=== PATIENT | male | born 1945 | race Caucasian/White ===

== ENCOUNTER 2024-10-10 17:43 | Emergency (ER) | payer OTHER, SELFPAY ==
[2024-10-10 17:43] VITALS: BMI 31.6
[2024-10-10 17:53] VITALS: BP 144/90
[2024-10-10 18:14] LABS: Hematocrit 36.9 % (39.0-52.0); Hemoglobin 12.6 g/dL (13.0-18.0); Mean Corp Hgb Conc. 34.1 g/dL (33.0-37.0); Mean Corpuscular Volume 89.8 fL (80.0-94.0); Nucleated Red Blood Cells % 0 % (-); Platelet Count 146 10^3/uL (130-400); Red Cell Dist. Width 12.2 % (11.5-14.5)
[2024-10-10 18:33] LABS: ALT (SGPT) 17 U/L (0-50); AST (SGOT) 17 U/L (17-59); Albumin 4.2 g/dl (3.5-5.0); Alkaline Phosphatase 84 U/L (38-126); Blood Urea Nitrogen 15 mg/dl (9-20); Calcium 8.4 mg/dl (8.4-10.2); Carbon Dioxide 24 mmol/L (22-30); Chloride 96 mmol/L (98-107); Glucose 292 mg/dl (70-99); Potassium 4.6 mmol/L (3.5-5.1); Sodium 128 mmol/L (135-145); Total Protein 6.8 g/dl (6.3-8.2); eGFR > 60.00
[2024-10-10 20:58] VITALS: BP 137/86
[2024-10-10 21:00] VITALS: BP 138/84
--- NOTE | 2024-10-10 22:52 | ED.GENMED ---
History of Present Illness
General
Chief Complaint: Headache
Source: patient
Time Seen by Provider: 10/10/24 20:49
History of Present Illness
History of Present Illness:
Note:
CHIEF COMPLAINT(S)
Headache.
HISTORY OF PRESENT ILLNESS
The patient is an 79-year-old male with a history of diabetes, coronary artery disease, and hypertension, who presents with a headache that began two days ago. He describes the onset as gradual and notes that the pain is localized primarily to the
bilateral temporal regions. The patient reports associated scalp tenderness on both sides but denies any accompanying rash, fever, neck pain, prior injury, numbness, tingling, or motor weakness. The headache reportedly improves with the use of
Aleve, which the patient took at home. During the examination, the patient indicated that the headache was almost resolved.
PAST MEDICAL AND SURGICAL HISTORY
Diabetes, Coronary artery disease, Hypertension.
PHYSICAL EXAM
General: Alert, no acute distress.
Skin: Warm, dry.
Head: Normocephalic, atraumatic.
Neck: Supple, trachea midline.
Eye, Ears, Nose, Mouth and Throat: Oral mucosa moist; pupils are reactive to light; cranial nerves are intact.
Cardiovascular: Heart is regular without murmurs; normal peripheral perfusion, No edema.
Respiratory: Lungs are clear to auscultation; respirations are non-labored.
Gastrointestinal: Abdomen non-distended.
Back: Normal range of motion; normal alignment.
Musculoskeletal: Normal range of motion, normal strength.
Neurological: Alert and oriented to person, place, time, and situation; no focal neurological deficit observed; no pronator drift.
Psychiatric: Cooperative, appropriate mood & affect.
PROBLEM LIST
Acute: Headache
Chronic: Diabetes, Coronary artery disease, Hypertension
PLAN
The patient was advised to continue monitoring symptoms and to contact his primary care physician if the headache worsens or if new symptoms develop. Given the improvement with Aleve and resolution during evaluation, no immediate further
intervention is necessary.
DIFFERENTIAL DIAGNOSIS
The Differential Diagnosis includes, in no particular order and is not limited to:
1. Tension-type headache
2. Temporal arteritis
3. Migraine
4. Sinusitis
5. Hypertensive headache
6. Cluster headache
7. Medication overuse headache
8. Occipital neuralgia
9. Cervical spondylosis
10. Trigeminal neuralgia
Disposition:
SUMMARY OF ENCOUNTER
The patient, an 79-year-old male with a history of diabetes, coronary artery disease, and hypertension, presented with a headache that began two days ago, primarily localized to the bilateral temporal regions with associated scalp tenderness. The
patient reported the headache improved with the use of naproxen (Aleve) at home. Examination revealed the headache had almost resolved. Imaging (CT scan) did not show any acute intracranial hemorrhage. Laboratory tests indicated mild leukocytosis
(12.5 x 10^9/L), slight hyponatremia (128 mEq/L), and hyperglycemia (292 mg/dL), suggesting a partial pseudohyponatremia as the patient is known to be diabetic. Neurological examination was normal. The patient was deemed suitable for discharge with
advice for increased fluid intake and outpatient follow-up.
DISPOSITION
Discharge
ASSESSMENT
The patients headache almost resolved with naproxen, and imaging ruled out acute intracranial concerns, while lab results highlighted diabetes-related pseudohyponatremia.
PLAN
The patient should monitor symptoms and increase fluid intake. He is advised to follow up with his primary care physician for further management and consideration of chronic conditions.
INDEPENDENT REVIEW OF LABS AND INTERPRETATION OF TESTS
- My independent review of the CBC indicates mild leukocytosis at 12.5 x 10^9/L.
- My independent review of the BMP shows slight hyponatremia at 128 mEq/L and hyperglycemia at 292 mg/dL, consistent with partial pseudohyponatremia due to diabetes.
PATIENT EDUCATION AND COUNSELING
The patient was informed about the nature of his headache and reassured following normal CT findings. He was advised to increase fluid intake and follow up with his primary care physician to manage his diabetes and associated lab results.
FOLLOW-UP INSTRUCTIONS
Please call the office immediately to schedule a follow-up visit with your primary care physician to manage chronic conditions and re-assess lab values.
MEDICATION RECONCILIATION
1. Haxe-qkb-kjhmipa naproxen (Aleve) showed efficacy in alleviating headache symptoms.
MEDICAL DECISION MAKING
-Chronic conditions affecting care: Diabetes, Coronary artery disease, Hypertension
-DDx list:
1. Tension-type headache
2. Temporal arteritis
3. Migraine
4. Sinusitis
5. Hypertensive headache
6. Cluster headache
7. Medication overuse headache
8. Occipital neuralgia
9. Cervical spondylosis
10. Trigeminal neuralgia
-Data:
Category 1
- My independent interpretation of the CT scan shows no acute intracranial hemorrhage.
-Risk:
Consideration of Admission/Observation: Escalation of care including admission/observation was considered given the complexity and risk of the patients presenting complaint, exam findings, and their underlying comorbidities. However, ultimately I
feel the patient is safe for outpatient management with close follow-up. Reasoning: Work-up reassuring, does not reveal any acute life/organ-threatening processes, patients symptoms well controlled upon reevaluation, reexamination is reassuring,
vitals are stable, patient agreeable with discharge, reliable for follow-up.
DIAGNOSIS
1. Headache, tension-type (ICD-10: G44.209)
2. Diabetes Mellitus Type 2 with hyperglycemia (ICD-10: E11.65)
3. Leukocytosis (ICD-10: D72.829)
4. Hyponatremia (ICD-10: E87.1)
Phy Exam
Physical Exam
Physical Exam:
.
Course
Orders/Labs/Results
Orders:
Orders
10/10/24 18:07
Complete Blood Count/With Diff Urgent
Comprehensive Metabolic Panel Urgent
10/10/24 21:15
CT Head W/o Iv Contrast Urgent
Comment:
Reason For Exam: FRIEDMAN
Abnormal Lab Results
10/10/24
18:07
WBC 12.5 H 10^3/uL
(4.8-10.8)
RBC 4.11 L 10^6/uL
(4.70-6.10)
Hgb 12.6 L g/dL
(13.0-18.0)
Hct 36.9 L %
(39.0-52.0)
Abs Immat Gran (auto) 0.1 H 10^3/uL
(0-0.05)
Absolute Neuts (auto) 10.8 H 10^3/uL
(1.4-6.5)
Absolute Lymphs (auto) 0.7 L 10^3/uL
(1.2-3.4)
Absolute Monos (auto) 0.9 H 10^3/uL
(0.1-0.6)
Neutrophils % 86.4 H %
(42.2-75.2)
Lymphocytes % 5.3 L %
(20.5-51.1)
Sodium 128 L mmol/L
(135-145)
Chloride 96 L mmol/L
(98-107)
Glucose 292 H mg/dl
(70-99)
10/10/24 18:07
10/10/24 18:07
Vital Signs
Initial and Last Documented VS:
Initial Vital Signs
Temp Pulse Resp BP Pulse Ox
98.1 F 104 20 144/90 97
10/10/24 17:53 10/10/24 17:53 10/10/24 17:53 10/10/24 17:53 10/10/24 17:53
Last Documented Vital Signs
Temp Pulse Resp BP Pulse Ox
98.1 F 84 17 138/84 97
10/10/24 17:53 10/10/24 21:45 10/10/24 21:45 10/10/24 21:00 10/10/24 21:45
*Pulse Oximetry
SaO2: 97
Oxygen Mode of Delivery: Room air
Patient hypoxic: no
*Critical Care Note
Total Time (30-74mins, 75-104mins- exclusive of procedures): Not Applicable
ED Attending Note
-
Portions of this chart may have been created with voice recognition software.� Occasional wrong word or��sound alike� substitutions may have occurred due to the inherent limitations of voice recognition software.
Discharge Plan
Departure
Patient Disposition: Home (Routine Discharge)
Date of Disposition: 10/10/24
Time of Disposition: 22:56
Patient with high blood pressure during this ER visit?: No
Discharge Problem:
Headache, Hyperglycemia
Instructions: Headache, Adult (DC), High blood sugar in adults - ED discharge instructions
Referrals:
Ledy Workman PA-C [Family Provider, Family Practice]
Activity Restrictions/Additional Instructions:
Please drink plenty of fluids and monitor your blood sugar. Please see your doctor in the next 3 to 4 days for follow-up and reevaluation and further management of your blood glucose. Return immediately for vomiting, abdominal pain, chest pain,
shortness of breath, worsening headache, weakness of any kind or any other concerns.
Interventions
Interventions:
*Risk Screen - Suicide Last Done: 10/10/24 17:56
*General Assessment Last Done: 10/10/24 17:56
*Neglect/Abuse Screening Last Done: 10/10/24 17:56
*ED COVID-19 Vaccine History Last Done: 10/10/24 17:56
ED- Neurological Assessment Last Done: 10/10/24 20:40
Discharge Date and Time
Print Language: THAI
[2024-10-10] MEDS: NSS 1000 IV (22:56)
[2024-10-10 23:00] VITALS: BP 142/89
== END 2024-10-10 23:45 | disposition home or self-care (01) ==
LOC: EMR 17:43
PROVIDERS: Emergency Medicine; EMERGENCY PHYSICIAN Emergency Medicine; FAMILY PHYSICIAN Physician Assistant Medical
DX: G44.209 Tension-type headache, unspecified, not intractable (principal); E11.65 Type 2 diabetes mellitus with hyperglycemia; D72.829 Elevated white blood cell count, unspecified; E87.1 Hypo-osmolality and hyponatremia; I25.10 Atherosclerotic heart disease of native coronary artery without angina pectoris; I10 Essential (primary) hypertension
CPT/HCPCS: 70450; 80053; 85025; 99284